=== PATIENT | female | born 1980 | race Caucasian/White ===

== ENCOUNTER 2017-09-12 20:18 | Emergency (ER) | payer OTHER, MEDICAID ==
[~2017-09-12] VITALS: Ht 162.6 cm; Wt 110.9 kg
[2017-09-12 20:19] VITALS: BP 136/79; PULSE 80; RESP 16; TEMP 98.4; O2SAT 98
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
[2017-09-12] MEDS ORDERED: KETOROLAC TROMETHAMINE 60 MG/2 ML (IM) VIAL IM ONE (22:45)
[2017-09-12] MEDS ORDERED: ORPHENADRINE INJ 60 MG/2 ML AMP IM ONE (22:45)
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
[2017-09-12] MEDS ORDERED: ROBA500T PO (23:05)
[2017-09-12] MEDS ORDERED: IBUP1TAB7 PO (23:05)
== END 2017-09-12 23:39 | disposition home or self-care (01) ==
LOC: NEPD 20:18
DX: S39.012A Strain of muscle, fascia and tendon of lower back, initial encounter (principal); S16.1XXA Strain of muscle, fascia and tendon at neck level, initial encounter; V89.2XXA Person injured in unspecified motor-vehicle accident, traffic, initial encounter
CPT/HCPCS: 72100; 96372; 99284; J1885; J2360